=== PATIENT | female | born 1955 | race Caucasian/White ===

== ENCOUNTER → 2017-02-10 | Outpatient (CLI) | payer BC ==
--- NOTE | ~2017-02-10 | CT57 ---
[facility] A Service of [facility] RADIOLOGY TEXT RESULTS PATIENT: JACQUES CHEW LOCATION: [facility] : 59 UNIT #: [id number] AGE: [address]: Piper Barber APRN SEX: F ORDER DR: [id number] [address] [address] [id number] O MR#: [id number] Acc #: [id number] NAME: JACQUES CHEW : 1955 SEX: F STUDY DATE/TIME: 02/10/2017 11:00 UNIT: [facility] ROOM: STUDY DESCRIPTION: CT Chest Wo Cont Attending Physician: Piper Barber A.P.R.N. Referring Physician: Piper Barber A.P.R.N. Ordering Physician: Piper Barber A.P.R.N. Primary Care Physician: Joana Woods M.D. MEDICAL IMAGING REPORT This report is preliminary unless electronic signature is present. EXAM CT of the chest without contrast. INDICATIONS Right chest since October. TECHNIQUE CT of the chest was performed without contrast. Coronal and sagittal reformatted images were obtained. This CT exam was performed with one or more of the following radiation dose reduction techniques: automatic exposure control, adjustment of mA and/or kV according to patient size, and iterative reconstruction. COMPARISON With 10/16/2009. FINDINGS There is minimal biapical scarring. There is stable scarring in the left lower lobe and lingula. Stable benign nodule in the left lower lobe on image 37. There is no suspicious pulmonary nodule. Small hiatal hernia. No suspicious lymphadenopathy. No pleural effusion. Limited imaging of the upper abdomen demonstrates a prior cholecystectomy. Bone windows demonstrate healing fractures involving multiple lower anterior and lateral right ribs. This probably accounts for the patient's symptoms. IMPRESSION 1. Multiple healing right-sided rib fractures. 2. No change in the appearance of the lungs. Dictated by... Can Bragg M.D. [facility] A Service [facility] RADIOLOGY TEXT RESULTS PATIENT: JACQUES CHEW LOCATION: [facility] : 59 UNIT #: [id number] AGE: [address]: Piper Barber APRN SEX: F ORDER DR: THIS IS AN ELECTRONICALLY VERIFIED REPORT Can Bragg M.D. at 02/10/2017 4:50 PM KAMILLA/andrew TD: 02/10/2017 13:24 JOB #: [id number] MEDICAL IMAGING REPORT Page 1 of 1
== END | disposition home or self-care (01) ==
LOC: SCT 10:52
DX: R07.89 Other chest pain (principal); R06.02 Shortness of breath; S22.31XD Fracture of one rib, right side, subsequent encounter for fracture with routine healing
CPT/HCPCS: 71250

== ENCOUNTER → 2017-02-18 | Outpatient (CLI) | payer BC ==
--- NOTE | ~2017-02-18 | BD1 ---
[facility] A Service of [facility] RADIOLOGY TEXT RESULTS PATIENT: JACQUES CHEW LOCATION: [facility] : 59 UNIT #: [id number] AGE: [address]: Piper Barber APRN SEX: F ORDER DR: [id number] [address] [address] [id number] O MR#: [id number] Acc #: [id number] NAME: JACQUES CHEW : 1955 SEX: F STUDY DATE/TIME: 02/18/2017 10:37 UNIT: [facility] ROOM: STUDY DESCRIPTION: Dexa Bone Dens 1+ Site Attending Physician: Piper Barber A.P.R.N. Referring Physician: Piper Barber A.P.R.N. Ordering Physician: Piper Barber A.P.R.N. Primary Care Physician: Joana Woods M.D. MEDICAL IMAGING REPORT This report is preliminary unless electronic signature is present. EXAM DXA scan 02/18/2017 HISTORY Status post menopause with no hormone replacement therapy. Osteopenia. Family history of osteoporosis in mother. Fractured ribs in last 10 years. Thyroid medication. FINDINGS Bone mineral density in the lumbar spine from L1-L4 was 1.459 g/cm2 which is 2.3 standard deviations above the mean when compared to the young adult reference population which is within the range of normal. This is 2.9 standard deviations above the mean when compared to the age-matched population. Bone mineral density in the left femoral neck was 0.969 g/cm2 which is 0.5 standard deviations below the mean when compared to the young adult reference population which is within the range of normal. This is 0.3 standard deviations above the mean when compared to the age-matched population. Bone mineral density in the right femoral neck was 1.033 g/cm2 which is 0 standard deviations from mean when compared to the young adult reference population which is within the range of normal. This is 0.8 standard deviations above the mean when compared to the age-matched population. IMPRESSION Bone mineral density in the lumbar spine and the hips bilaterally within the range of normal. Dictated by... Mendez Carr M.D. THIS IS AN ELECTRONICALLY VERIFIED REPORT Mendez Carr M.D. at 02/18/2017 5:34 PM KRT/bryan STS. [facility] A Service of [facility] & [facility] RADIOLOGY TEXT RESULTS PATIENT: JACQUES CHEW LOCATION: [facility] : 59 UNIT #: [id number] AGE: [address]: Piper Barber APRN SEX: F ORDER DR: TD: 02/18/2017 13:26 JOB #: [id number] MEDICAL IMAGING REPORT Page 1 of 1
== END | disposition home or self-care (01) ==
LOC: SRAD 10:22
DX: S22.49XD Multiple fractures of ribs, unspecified side, subsequent encounter for fracture with routine healing (principal); Z78.0 Asymptomatic menopausal state
CPT/HCPCS: 77080